=== PATIENT | male | born 1965 | race Caucasian/White ===

== ENCOUNTER 2019-08-15 14:00 | Emergency (ER) | payer OTHER, SELFPAY ==
[2019-08-15 14:03] VITALS: BP 150/120; PULSE 76; RESP 26; TEMP 36.1; O2SAT 100
--- NOTE | 2019-08-15 14:17 | W.ED.GENAD ---
Discharge Plan Disposition Patient Disposition: HOME Condition: Improving Discharge Details Chief Complaint: FlankPain Clinical Impression: Renal colic on left side Primary Care Provider: None,None ED Provider: Chad Hughes Home Meds and New Rx's Prescriptions: New tamsulosin [Flomax] 0.4 mg capsule 0.4 mg PO DAILY Qty: 30 RF: 0 Discharge Instructions Instructions: Renal Colic (ED) Additional Instructions: Please take ibuprofen over the counter. Take 600mg by mouth every 6 hours as needed for pain. Please take acetaminophen (tylenol) - 650mg every 6 hours by mouth as needed for pain. Please take Flomax as prescribed until stone passes. Please follow-up with urology. Call for an appointment. Your blood pressure today was elevated. Suspect this is secondary to your pain. Be sure to follow-up with your primary care physician for repeat blood pressure testing. Return to the ER for any worsening or new concerning symptoms. Stand Alone Forms: Work Release Referrals: Benjamin Glover MD [ [facility] STAFF PHYSICIAN] - Discharge Data Discharge Date/Time-TO BE ENTERED AT DEPARTURE: 08/15/19 16:25 Medical Decision Making 1420??53-year-old male with history of renal stones in the past, presents with left flank pain migrating down to left groin since this morning, feels exactly like prior severe kidney stone passing. Patient states he has 2 to 3 stones per year for years. Concern for renal colic. Plan to give Toradol 30 mg IV and reassess. --Zofran 4 mg IV given for nausea. Patient was also given a dose of p.o. Tylenol. --Patient reassessed and feels much better. Tolerating p.o. I provided strict instructions the patient to return immediately for any worsening symptoms and that he will need additional diagnostic should symptoms persist more than a couple days. He was provided referral to urology. Usual and customary discharge instructions otherwise provided. HPI General Mode of arrival: ambulatory. Date/Time Provider Initiated Documentation: 08/15/19 14:05. Limitations to Documentation: no limitations. Information obtained by: patient. HPI Narrative: 53-year-old male with history of kidney stones in the past, presents with chief complaint of left flank pain. Pain is severe. Pain started this morning around 7 AM initially in his left back and flank and have since migrated to his left lower flank and groin. Pain feels exactly like prior renal stones. Pain is severe. No modifiers. No associated hematuria. No associated dysuria. No fever. Related Data Home Medications Medication Instructions Recorded Confirmed tamsulosin [Flomax] 0.4 mg PO DAILY #30 cap 08/15/19 Previous Rx's Medication Instructions Recorded tamsulosin [Flomax] 0.4 mg PO DAILY #30 cap 08/15/19 Allergies Allergy/AdvReac Type Severity Reaction Status Date / Time morphine Allergy Intermediate Agitation Unverified 08/15/19 14:09 General Stated Complaint: FlankPain KIMBERLY: 3 Review of Systems All systems reviewed & are unremarkable except as noted in HPI and below Constitutional Constitutional: Denies fever(s) Genitourinary Genitourinary: Denies dysuria [facility] Medical History (Updated 08/15/19 @ 14:19 by Chad Hughes MD) Renal stones (Chronic) Social History Smoking/Tobacco Use Status: Current every day Tobacco Type: smokeless tobacco Alcohol Intake: current Alcohol Intake frequency: holidays/special occasions only Drug use: Never Do you feel safe at home: Yes Do you feel safe in your relationship?: Yes Exam Const General: cooperative and no acute distress HENMT Head: normocephalic and atraumatic Mouth: moist mucous membranes Eyes Conjunctivae: normal conjunctivae Sclera: normal sclerae Neck Neck: trachea midline and supple Resp Auscultation: clear to auscultation bilaterally, no rales, no rhonchi and no wheezes Cardio Jugular venous pressure: no JVD Rate: regular rate and not tachycardic Rhythm: regular rhythm GI Palpation: soft, not firm, no guarding, no masses, not rigid and nontender Skin General skin exam: no rashes or lesions noted Neuro General: alert, awake, oriented x3 and tone normal Extrem General: no edema Psych Appearance: grossly normal Mental Status: mental status grossly normal Course Vital Signs Vital signs: Vital Signs Temperature 36.1 C L 08/15/19 14:03 Pulse 76 08/15/19 14:03 Respiratory Rate 26 H 08/15/19 14:03 Blood Pressure 150/120 H 08/15/19 14:03 Pulse Oximetry 100 08/15/19 14:03 Temperature 36.1 C L 08/15/19 14:03 Temperature Source Skin 08/15/19 14:03 Pulse 76 08/15/19 14:03 Respiratory Rate 26 H 08/15/19 14:03 Respiratory Effort 08/15/19 14:06 Blood Pressure 150/120 H 08/15/19 14:03 Blood Pressure Position Sitting 08/15/19 14:03 Pulse Oximetry 100 08/15/19 14:03 Oxygen Delivery Method Room Air 08/15/19 14:03 Oxygen Flow Rate 0 08/15/19 14:03 Pain Level 10 08/15/19 14:03
[2019-08-15] MEDS: Ketorolac 30 MG/ML VIAL (14:19)
[2019-08-15 14:55] LABS: Bilirubin Negative (Negative); Blood Moderate (Negative); Clarity Clear (Clear); Glucose Negative (Negative); Ketones Negative (Negative); Leukocyte Esterase Negative (Negative); Nitrite Negative (Negative); Specific Gravity >= 1.030 (1.005-1.025)
[2019-08-15 15:12] LABS: Bacteria Few HPF (Negative); C & S Indicated? No; Crystals Negative HPF (Negative); Epithelial Cells Few HPF (Negative); Mucus Negative (Negative); RBC >50 HPF (0-2); WBC 0-2 HPF (0-5)
[2019-08-15] MEDS: Acetaminophen 325 MG TAB 650 MG PO (15:52)
[2019-08-15] MEDS: Ondansetron 4 MG/2 ML VIAL IVP (15:53)
[2019-08-15 16:25] VITALS: BP 168/90; PULSE 56; RESP 16; O2SAT 96
== END 2019-08-15 16:25 | disposition home or self-care (01) ==
PROVIDERS: Emergency Provider Student in an Organized Health Care Education/Training Program
DX: N23 Unspecified renal colic (principal); R10.32 Left lower quadrant pain; Z87.442 Personal history of urinary calculi
CPT/HCPCS: 96374; 96375; 99284; 81003; 81015; 99283; J1885; J2405

== ENCOUNTER 2022-01-23 23:30 | Emergency (ER) | payer OTHER, SELFPAY ==
[2022-01-23] VITALS (8 sets, daily range): BP systolic 141–209; BP diastolic 106–120; PULSE 108–120; RESP 12–23; TEMP 36.4; O2SAT 94–97
--- NOTE | 2022-01-23 23:30 | RT.EKG_ITS ---
APPROVED REPORT Exam: Resting ECG Reason for Exam: chest pain Patient Location: E HR:111 bpm ECG Measurements Heart Rate 111 AXIS MA 142 P 80 QRSd 109 QRS -37 QT 363 T 96 QTc 496 Conclusion Sinus tachycardia...rate> 99 Ventricular premature complex...V complex w/ short R-R interval Left ventricular hypertrophy...multiple LVH criteria Nonspecific T abnormalities, lateral leads...T <-0.10mV, I aVL V5 V6
--- NOTE | 2022-01-23 23:45 | DI.RAD_ITS ---
Exam(s) XR PORTABLE CHEST AP EXAM: XR PORTABLE CHEST AP CLINICAL HISTORY: chest pain. TECHNIQUE: 2D digital imaging was performed. COMPARISON: No exams were available for comparison FINDINGS: Single AP portable view. Heart size is upper normal. The mediastinum is not widened. Lungs are clear. No infiltrates nor obvious pleural effusions. IMPRESSION: No acute pulmonary findings on this single AP portable view of the chest. DATA REPOSITORY: RADIATION DOSE DELIVERED: All CT scans at this facility use at least one of these dose optimization techniques: automated exposure control; mA and/or kV adjustment per patient size (includes targeted e xams where dose is matched to clinical indication); or iterative reconstruction.
--- NOTE | 2022-01-23 23:49 | ED.GENADUL_ITS ---
Discharge Plan Disposition Patient Disposition: HOSPITAL, NON-SPECIFIC Condition: Stable Discharge Details Clinical Impression: Non-ST elevation NM (NSTEMI) Primary Care Provider: None,None ED Provider: Bereket Delaney Home Meds and New Rx's Prescriptions: No Action tamsulosin [Flomax] 0.4 mg capsule 0.4 mg PO DAILY Qty: 30 0RF Rx Instructions: Take until stone passage and then stop. Discharge Data Discharge Date/Time-TO BE ENTERED AT DEPARTURE: 01/24/22 04:54 Medical Decision Making 56 yo male who denies chronic medical problems though hasn't seen a provider regularly in many years per patient, comes in with chest pain starting 20minutes ago that woke him up from sleep. He denies any pain similar to this in the past. He states he went to bed feeling well without symptoms. He denies smoking history, drug use or alcohol use. He states the pain is a sharp anterior chest pain and gets pain in his jaw and left arm. He denies back pain, abdominal pain, n/v. He appears uncomfortable on exam. He has no leg swelling or calf tenderness, no jvd, soft nontender abodmen. He is noted to be hypertensive and tachycardic on exam. He has no murmurs, clear lung sounds. Concern for possible acs, will obtain troponin, ekg shows sinus tach with no stemi, does have lvh and I suspect he has chronic untreated hypertension. He has no hypoxia and no evidence of dvt so feel PE is unlikely though he is tachycardic. If he remains tachycardic pain free will consider cta of the chest. No tearing back pain and normal vascular exam so unlikely dissection. pt had resolution of chest pain with 3 nitro, bp now 140/90 and he feels better. Labs unremarkable, will obtain delta troponin. Xray negative on my read awaiting vrad read. He is still tachycardia despite being pain free so will order cta of the chest to evaluate for PE pt stable, HR now 80 and bp 142/85 and denies any pain, cta negative for pe does have mild cardiomegaly which I suspect is from years of uncontrolled hypertension. Awaiting delta troponin and ecg pt still denying chest pain, does state he has some tingling in his left hand. BP now 138/67 and HR 81. His second troponin came back at 1018. Heparin ordered, will try and transfer to tertiary care center [facility] not accepting transfers and not placing patients on transfer list. [facility] same as [facility] Pt remains hemodynamically stable at this time will reach out to [facility] as [facility], will reach out to [facility] Spoke with Dr. Nick from cardiology at [facility], he recommended nitropaste, 300mg plavix, 25mg metoprolol po and he has accepted in transfer. Pt updated and is in agreement with plan Differential Diagnosis Differential Diagnosis: NM, dissection, pe Imaging Data Radiologic Study: Attestation: I personally reviewed and interpreted this imaging study as follows: Imaging: X-Ray My impression: no acute findings Radiologic Study #2: Attestation: I personally reviewed and interpreted this imaging study as follows: Imaging: CT Scan Radiologist's impression: IMPRESSION: No pulmonary emboli observed mild cardiomegaly Lab Data Lab results reviewed: Yes I reviewed the patient's lab results. ECG Data Attestation: I personally reviewed and interpreted this ECG (s) as follows: Prior ECG tracings: not available for review Interpretation: sinus tachycardia, rate of 111, lvh, no stemi 2nd ekg sinus rhythm, rate of 89, pr 141, no stemi HPI General Mode of arrival: ambulatory . Date/Time Provider Initiated Documentation: 01/23/22 23:36 . Limitations to Documentation: no limitations . Information obtained by: patient . History of Present Illness 56 year old M presents to the emergency department with the chief complaint of chest pain, described as moderate, and is localized to the chest. Patient extremity. Patient started experiencing this minute(s) (20) and it has been constant. No relieving factors improve symptom(s), No exacerbating factors reported . Patient notes shortness of breath. Related Data Home Medications Medication Instructions Recorded Confirmed tamsulosin 0.4 mg capsule (Flomax) 0.4 mg PO DAILY #30 caps 08/15/19 Previous Rx's Medication Instructions Recorded tamsulosin 0.4 mg capsule (Flomax) 0.4 mg PO DAILY #30 caps 08/15/19 Allergies Allergy/AdvReac Type Severity Reaction Status Date / Time morphine Allergy Intermediate Agitation Unverified 01/24/22 00:07 General Stated Complaint: Chest Pain KIMBERLY: 3 Review of Systems All systems reviewed & are unremarkable except as noted in HPI and below Constitutional Constitutional: Denies chills, Denies fever(s) and Denies weakness Respiratory Respiratory: Denies cough Gastrointestinal Gastrointestinal: Denies abdominal pain, Denies nausea and Denies vomiting Neurologic Neurologic: Denies weakness PFSH All Active Problems (Updated 01/24/22 @ 04:00 by Bereket Delaney MD) Non-ST elevation NM (NSTEMI) (Acute) Renal stones (Chronic) Social History Smoking/Tobacco Use Status: Former Tobacco Use Smoking risk assessment performed?: Yes Alcohol Intake: current Alcohol Intake frequency: holidays/special occasions only Drug use: Never Substance use type: does not use Do you feel safe at home: Yes Do you feel safe in your relationship?: Yes Exam Const General: other (appears in pain) Orientation: alert HENMT Head: normal to inspection Ears: external ears normal General nose exam: external nose normal Mouth: moist mucous membranes Eyes General: appearance normal, both eyes and all related structures Neck Neck: normal visual inspection Resp Effort & Inspection: normal respiratory effort and able to speak in complete sentences Cardio Rate: tachycardic Skin General skin exam: no rashes or lesions noted Neuro General: patient alert and patient oriented x3 Extrem General: normal to inspection Psych Mental Status: mental status grossly normal Course Vital Signs Vital signs: Vital Signs Temperature 36.4 C L 01/23/22 23:33 Pulse 120 H 01/23/22 23:33 Respiratory Rate 20 01/23/22 23:33 Blood Pressure 209/120 H 01/23/22 23:33 Pulse Oximetry 97 01/23/22 23:33 Temperature 36.4 C L 01/23/22 23:33 Temperature Source Temporal Artery Scan 01/23/22 23:33 Pulse 120 H 01/23/22 23:33 Respiratory Rate 20 01/23/22 23:33 Blood Pressure 209/120 H 01/23/22 23:33 Blood Pressure Position Sitting 01/23/22 23:33 Pulse Oximetry 97 01/23/22 23:33 Oxygen Delivery Method Room Air 01/23/22 23:33 Oxygen Flow Rate 0 01/23/22 23:33 Critical Care Time Critical Care Time Critical Care Time: Yes Total Critical Care Time: 60 (minutes) Attestation: time spent on lab review, frequent reassessments, hemodynamic monitoring in a pa tient with an nstemi and potential to deteriorate at any time and requiring iv heparin
[2022-01-23 23:50] LABS: Abs Immature Grans 0.03 10^3/uL (0.0-0.06); Absolute Basophil Count 0.09 10^3/uL (0.0-0.2); Absolute Eosinophil Count 0.36 10^3/uL (0.0-0.7); Absolute Lymphocyte Count 4.29 10^3/uL (1.2-3.4); Absolute Monocyte Count 0.93 10^3/uL (0.1-0.8); Absolute Neutrophil Count 4.02 10^3/uL (1.2-6.7); Basophils % 0.9; Eosinophils % 3.7; HCT 51.5 % (40.0-50.0); HGB 17.9 g/dL (13.5-17.5); Immature Grans % 0.3; Lymphocytes % 44.1; MCH 32.3 pg (27.0-33.0); MCHC 34.8 % (32.0-36.0); MCV 93 fL (80-95); MPV 10.2 fL (8.0-11.0); Monocytes % 9.6; Neutrophils % 41.4; Platelet Count 184 10^3/uL (130-400); RBC 5.55 10^6/uL (4.36-5.78); RDW 12.9 % (11.8-14.1); RDW-SD 43.9 fL; WBC 9.72 10^3/uL (4.4-10.8)
[2022-01-23] MEDS: nitroGLYcerin 0.4 MG TAB SL (23:54)
[2022-01-23] MEDS: Aspirin 81 MG CHEW 324 MG CH (23:54)
[2022-01-24] VITALS (53 sets, daily range): BP systolic 133–202; BP diastolic 67–118; PULSE 68–117; RESP 10–21; O2SAT 89–99
[2022-01-24] MEDS: nitroGLYcerin 0.4 MG TAB SL ×2 (00:04→00:10)
[2022-01-24 00:08] LABS: ALT 164 U/L (16-63); AST 105 U/L (15-37); Albumin 3.7 g/dL (3.4-5.0); Alkaline Phosphatase 71 U/L (46-116); Anion Gap 4.4 mmol/L (3-11); BUN 11 mg/dL (7-18); Bilirubin, Total 0.4 mg/dL (0.2-1.0); CO2 25.6 mmol/L (21.0-32.0); CREATININE 1.1 mg/dL (0.70-1.30); Calcium 8.5 mg/dL (8.5-10.1); Chloride 102 mmol/L (98-107); Glucose 177 mg/dL (74-106); Magnesium 1.9 mg/dL (1.8-2.4); Potassium 3.4 mmol/L (3.5-5.1); Sodium 132 mmol/L (136-145); Total Protein 7.4 g/dL (6.4-8.2); Troponin I < 50 ng/L (<or=60)
--- NOTE | 2022-01-24 00:15 | DI.CT_ITS ---
Exam(s) CT CHEST PE CTA EXAM: CT CHEST PE CTA CLINICAL HISTORY: chest pain, tachycardia. TECHNIQUE: Imaging Protocol: CT angiography of the chest was performed using pulmonary embolus marge col. Multi planar reconstructions were performed. CONTRAST MATERIAL: Intravenous: Isovue 370 contrast volume: 100 cc COMPARISON: CT RENAL COLIC WO CONTRAST from 01/23/2015 FINDINGS: CHEST: PULMONARY ARTERIES: There are no intraluminal filling defects to suggest acute pulmonary emboli. LUNGS: Mild increased markings both lung bases but no confluent infiltrates.. There are no pleural e ffusions. MEDIASTINUM: There is no hilar nor mediastinal adenopathy. Visualized thyroid unremarkable. CARDIAC: There is mild cardiomegaly.Caliber of the thoracic aorta is within normal limits. No evidenc e of dissection. No pericardial effusion. There is no significant shift of the interventricular sep cherise. PARTIALLY VISUALIZED UPPERMOST ABDOMEN: Hepatic steatosis noted. OSSEOUS: No significant osseous lesions.. IMPRESSION: 1. No evidence of acute pulmonary emboli. No evidence of pulmonary infarction.No pleural effusions. 2. Mild increased markings in both lung bases but no confluent infiltrates. No intrathoracic adenopa thy. 3. Mild cardiomegaly. No pericardial effusion. No shift of the interventricular septum. RADIATION DOSE DELIVERED: 486.57mGy.cm Total DLP DATA REPOSITORY: All CT scans at this facility are submitted to the National Radiology Data Registry (NRDR) Dose Index Registry (DIR) with the [employer] (ACR). RADIATION OPTIMIZATION: All CT scans at this facility use at least one of these dose optimization te chniques: automated exposure control; mA and/or kV adjustment per patient size (includes targeted exa ms where dose is matched to clinical indication); or iterative reconstruction.
[2022-01-24] MEDS: Normal Saline 250 ML 500 ML IV (00:33)
--- NOTE | 2022-01-24 00:55 | DI.VRAD_ITS ---
PROCEDURE INFORMATION: Exam: XR Chest Exam date and time: 01/23/2022 23:44 Age: 56 years old Clinical indication: Chest wall pain; Additional info: Chest pain TECHNIQUE: Imaging protocol: XR of the chest. Views: 1 view. COMPARISON: CT RENAL COLIC WO CONTRAST 01/23/2015 18:13 FINDINGS: Lungs: Low lung volumes. No airspace consolidation. Pleural spaces: No pleural effusion. No pneumothorax. Heart/Mediastinum: The cardiac silhouette is upper limits of normal. Bones/joints: No acute fracture. IMPRESSION: Negative portable chest. Dictated and Authenticated by: Meaghan Staton MD. Ordering:NINOSKA Cuba MD
--- NOTE | 2022-01-24 02:15 | RT.EKG_ITS ---
APPROVED REPORT Exam: Resting ECG Reason for Exam: chest pain Patient Location: E HR:89 bpm ECG Measurements Heart Rate 89 AXIS VA 141 P 56 QRSd 101 QRS -40 QT 391 T 111 QTc 476 Conclusion Sinus rhythm...normal P axis, V-rate 60- 99 Left anterior fascicular block...axis(240,-40), init forces inf LVH with secondary repolarization abnormality...multi-LVH criteria, abnrm ST-T
--- NOTE | 2022-01-24 02:18 | DI.VRAD_ITS ---
PROCEDURE INFORMATION: Exam: CTA Chest With Contrast Exam date and time: 01/24/2022 12:42 AM Age: 56 years old Clinical indication: Pain; Left-sided; Additional info: Chest pain TECHNIQUE: Imaging protocol: Computed tomographic angiography of the chest with contrast. 3D rendering (Not supervised by radiologist): MIP and/or 3D reconstructed images were created by the technologist. Radiation optimization: All CT scans at this facility use at least one of these dose optimization techniques: automated exposure control; mA and/or kV adjustment per patient size (includes targeted exams where dose is matched to clinical indication); or iterative reconstruction. Contrast material: ISOVUE 370; Contrast volume: 100 ml; Contrast route: INTRAVENOUS (IV); COMPARISON: XR PORTABLE CHEST AP 01/23/2022 11:44 PM FINDINGS: Pulmonary arteries: No pulmonary emboli. Aorta: No aortic aneurysm. No aortic dissection. Lungs: Minimal subsegmental atelectasis No consolidation. No masses. Pleural spaces: Unremarkable. No pneumothorax. No pleural effusion. Heart: Mild cardiomegaly. No pericardial effusion. Lymph nodes: Unremarkable. No enlarged lymph nodes. Bones/joints: Unremarkable. No acute fracture. Soft tissues: Unremarkable. IMPRESSION: No pulmonary emboli observed Mild cardiomegaly Dictated and Authenticated by: Davey Dow MD. Ordering:NINOSKA Cuba MD
[2022-01-24 03:15] LABS: Troponin I 1018 ng/L (<or=60)
[2022-01-24 03:49] LABS: Source Nasal/Nares
[2022-01-24] MEDS: nitroGLYcerin 2% 1 INCH/1 GM PKT TP (03:56)
[2022-01-24 03:57] LABS: PTT Activated 24.7 sec (21.0-27.5); Prothrombin Time 10.4 sec (9.3-11.0)
[2022-01-24] MEDS: Clopidogrel 300 MG TAB PO (03:58)
[2022-01-24] MEDS: Metoprolol 25 MG TAB PO (03:58)
[2022-01-24 04:38] LABS: COVID-19 PCR Negative (Negative)
--- NOTE | 2022-01-24 07:48 | NUR.NOTE ---
wrong number listed under contact information.
== END 2022-01-24 04:54 | disposition short-term general hospital (02) ==
PROVIDERS: Emergency Provider Emergency Medicine
DX: I21.4 Non-ST elevation (NSTEMI) myocardial infarction (principal); I10 Essential (primary) hypertension; R00.0 Tachycardia, unspecified
CPT/HCPCS: 36415; 71275; 80053; 87635; 93005; 96361; 96365; 96376; 99291; 71045; 83735; 84484; 85025; 85610; 85730; 93010

== ENCOUNTER 2022-02-16 02:20 | Outpatient (CLI) | payer OTHER, SELFPAY ==
--- OUTSIDE RECORDS SUMMARY | 2022-02-16 02:24 | XMS_ITS | Continuity of Care Document ---
:1965 Author Organization [facility] Address [address] [place] [address]- Care Team Providers Name Role Phone Not on Staff, PCP Primary Care Physician Unavailable Encounter [facility] Date(s): 01/24/22 - 01/27/22 [facility] [address] [place] [id number] Discharge Disposition: A-D/C Home Attending Physician: Taina Begum MD Admitting Physician: Lev Mckenna MD Referring Physician: Lev Mckenna MD Allergies, Adverse Reactions, Alerts Substance Reaction Severity Status morphine1 Moderate Active 1Agitation Medications - -, See Instructions, # 1 each, Refills 0, Tot. Refills 0, Maintenance, PLEASE CHECK HEPATIC FUNCTIONPANEL IN ONE WEEK., 01/27/22 10:09:00 EDT, Supply Start Date: 01/27/22 Status: OrderedamLODIPine 5 mg oral tablet 5 mg, 1, tablet, By Mouth, Daily, # 30 tablet, Refills 3, Tot. Refills 3, Maintenance, 01/26/22 9:59:00 EDT, Route to Pharmacy Electronically, [facility], Partial fill upon patient request if the prescription is for a schedule II opioid... Start Date: 01/26/22 Stop Date: 05/26/22 Status: OrderedamLODIPine 5 mg oral tablet 5 mg, Tablet, By Mouth, 01/27/22 9:00:00 EDT Start Date: 01/27/22 Stop Date: 01/27/22 Status: Completedaspirin 81 mg oral delayed release tablet 81 mg, By Mouth, Daily, # 30 tablet, Refills 11, Tot. Refills 11, Maintenance, 01/26/22 9:59:00 EDT,Route to Pharmacy Electronically, [facility], Partial fill upon patient request if theprescription is for a schedule II opioid drug., 1... Start Date: 01/26/22 Stop Date: 01/21/23 Status: Orderedisosorbide mononitrate 30 mg oral tablet, extended release 1 tablet = 30 mg, By Mouth, Daily, # 30 tablet, 3 Refills, Maintenance, 01/27/22 10:02:00 EDT, ER Tablet, [facility], Partial fill upon patient request if the prescription is for a schedule II opioid drug., 178, cm, 01/27/22 3:34:00 EDT,... Start Date: 01/27/22 Stop Date: 05/27/22 Status: Orderedmetoprolol 25 mg oral tablet, extended release 25 mg, 1, tablet, By Mouth, Daily, # 30 tablet, Refills 3, Tot. Refills 3, Maintenance, 01/26/22 10:01:00 EDT, Route to Pharmacy Electronically, [facility], Partial fill upon patient request if the prescription is for a schedule II opioi... Start Date: 01/26/22 Stop Date: 05/26/22 Status: Orderedmetoprolol 25 mg oral tablet, extended release 25 mg, XL Tablet, By Mouth, 01/27/22 9:00:00 EDT Start Date: 01/27/22 Stop Date: 01/27/22 Status: Completedticagrelor 90 mg oral tablet 1 tablet = 90 mg, By Mouth, 2 times a day, # 60 tablet, 11 Refills, Maintenance, 01/26/22 10:00:00 EDT, Tablet, [facility], Partial fill upon patient request if the prescription is for a schedule II opioid drug., 178, cm, 01/25/22 16:48:... Start Date: 01/26/22 Stop Date: 01/21/23 Status: OrderedTylenol 325 mg oral tablet 650 mg, Tablet, By Mouth, Every 6 hours, PRN for Headache, Routine, 01/24/22 11:27:00 EDT Start Date: 01/24/22 Stop Date: 01/28/22 Status: Discontinued Problem List Condition Effective Dates Status Health Status Informant Obese class II(Confirmed) Active Vital Signs Most recent to oldest 1 2 3 [Reference Range]: Height 178 cm 178 cm 178 cm (01/27/22 12:30 AM) (01/25/22 2:30 PM) (01/25/22 8: 03 AM) Weight 118.9 kg 116.6 kg 114.0 kg (01/26/22 5:29 PM) (01/26/22 4:00 AM) (01/25/22 7:5 9 AM) Oxygen Saturation [94-100 %] 100 % 100 % 98 % (01/27/22 7:00 AM) (01/27/22 5:00 AM) (01/27/22 12: 30 AM) Pulse Rate [55-90 bpm] 79 bpm 79 bpm 80 bpm (01/27/22 8:35 AM) (01/27/22 7:00 AM) (01/27/22 5:0 0 AM) Body Mass Index [18.5-24.99] 35.98 36.58 36. 52 *>HHI* *>HHI* *>HHI* (01/25/22 1:46 AM) (01/24/22 9:00 AM) (01/24/22 8:1 3 AM) Blood Pressure [90-138/55-84 154/77 mm Hg 154/77 mm Hg 154 /77 mm Hg mm Hg] *H* *H* *H* (01/27/22 8:35 AM) (01/27/22 8:35 AM) (01/27/22 7:0 0 AM) Respiratory Rate [16-30 22 br/min 25 br/min 19 br/mi n br/min] (01/27/22 7:00 AM) (01/27/22 5:00 AM) (01/27/22 3:3 8 AM) Temperature [96.8-100.4 DegF] 98.1 DegF 98.3 DegF 98 .2 DegF (01/27/22 7:00 AM) (01/27/22 5:00 AM) (01/27/22 12: 30 AM) Liters per Minute 2 L/min 2 L/min 2 L/min (01/26/22 3:00 AM) (01/26/22 2:00 AM) (01/26/22 1:0 0 AM) Mode of Delivery (Oxygen) Room air Room air Room a ir (01/27/22 7:00 AM) (01/27/22 5:00 AM) (01/27/22 12: 30 AM) Blood pressure sites Arm, left Arm, left Arm, right (01/27/22 7:00 AM) (01/27/22 5:00 AM) (01/27/22 12: 30 AM) Temperature Route Oral Oral Oral (01/27/22 7:00 AM) (01/27/22 5:00 AM) (01/27/22 12: 30 AM) Dry Weight 115.9 kg 115.7 kg (01/24/22 9:00 AM) (01/24/22 8:13 AM) Weight Obtained Via bedscale Bed scale Bed scale (01/26/22 5:29 PM) (01/26/22 4:00 AM) (01/25/22 1:4 6 AM) Dry Weight Obtained Via Standing scale (01/24/22 8:13 AM)
[2022-02-16 11:33] LABS: ALT 127 U/L (16-63); AST 56 U/L (15-37); Albumin 4.3 g/dL (3.4-5.0); Alkaline Phosphatase 65 U/L (46-116); Anion Gap 12.2 mmol/L (3-11); BUN 18 mg/dL (7-18); Bilirubin, Total 0.6 mg/dL (0.2-1.0); CO2 20.8 mmol/L (21.0-32.0); CREATININE 1.3 mg/dL (0.70-1.30); Calcium 9.2 mg/dL (8.5-10.1); Chloride 106 mmol/L (98-107); Glucose 112 mg/dL (74-106); Potassium 4.3 mmol/L (3.5-5.1); Sodium 139 mmol/L (136-145); Total Protein 8.2 g/dL (6.4-8.2)
== END 2022-02-16 02:21 | disposition home or self-care (01) ==
LOC: LBO 02:20
PROVIDERS: PCP Family Medicine; Visit Provider Family Medicine
DX: R74.01 Elevation of levels of liver transaminase levels (principal); Z95.5 Presence of coronary angioplasty implant and graft
CPT/HCPCS: 36415; 80053

== ENCOUNTER 2022-03-30 08:51 | Outpatient (CLI) | payer OTHER, SELFPAY ==
[2022-04-02 11:22] LABS: HBs Antibody, Qual Negative (See Note); HBs Antibody, Quant <3.1 mIU/mL (See Note); Hepatitis B Core Antibody Negative (Negative); Hepatitis B surface Ag Negative (Negative); Hepatitis C Ab w Rflx HCV PCR Negative (Negative)
== END 2022-03-30 08:52 | disposition home or self-care (01) ==
LOC: LBO 08:51
PROVIDERS: PCP Family Medicine; Visit Provider Family Medicine
DX: R74.01 Elevation of levels of liver transaminase levels (principal)
CPT/HCPCS: 36415; 86704; 86706; 86803; 87340

== ENCOUNTER 2022-04-11 08:00 | Outpatient (RCR) | payer OTHER, SELFPAY | END 2022-04-11 23:59 | disposition home or self-care (01) | LOC: CR 08:00 | PROVIDERS: PCP Family Medicine; Visit Provider Internal Medicine Cardiovascular Disease | DX: Z51.89 Encounter for other specified aftercare (principal); I25.2 Old myocardial infarction; Z95.5 Presence of coronary angioplasty implant and graft | CPT/HCPCS: S9472 ==

== ENCOUNTER 2022-04-27 10:29 | Outpatient (RCR) | payer OTHER, SELFPAY | END 2022-05-11 23:59 | disposition home or self-care (01) | LOC: CR 10:29 | PROVIDERS: PCP Family Medicine; Visit Provider Internal Medicine Cardiovascular Disease | DX: Z51.89 Encounter for other specified aftercare (principal); I25.2 Old myocardial infarction; Z95.5 Presence of coronary angioplasty implant and graft | CPT/HCPCS: S9472 ==

== ENCOUNTER 2022-05-15 09:57 | Emergency (ER) | payer OTHER, SELFPAY ==
[2022-05-15] VITALS (41 sets, daily range): BP systolic 96–165; BP diastolic 64–95; PULSE 55–113; RESP 12–116; TEMP 36.5–37.1; O2SAT 94–99
--- NOTE | 2022-05-15 10:00 | RT.EKG_ITS ---
APPROVED REPORT Exam: Resting ECG Reason for Exam: Dizziness Patient Location: E HR:65 bpm ECG Measurements Heart Rate 65 AXIS AL 139 P 74 QRSd 112 QRS -39 QT 446 T -9 QTc 465 Conclusion Sinus rhythm...normal P axis, V-rate 60- 99
--- NOTE | 2022-05-15 10:27 | ED.GENADUL_ITS ---
Discharge Plan Disposition Patient Disposition: HOME Condition: Improving Discharge Details Clinical Impression: Benign paroxysmal positional vertigo Primary Care Provider: Pat Corbett ED Provider: Jaskaran Marroquin Home Meds and New Rx's Prescriptions: New meclizine 25 mg tablet 25 mg PO TID PRN (Reason: dizziness) Qty: 20 0RF ondansetron 4 mg tablet,disintegrating 4 mg PO Q8H PRNQty: 20 0RF Continued clopidogrel 75 mg tablet 75 mg PO DAILY Qty: 90 3RF aspirin 81 mg tablet,delayed release (DR/EC) 81 mg PO DAILY atorvastatin 80 mg tablet 80 mg PO QHS Qty: 90 3RF metoprolol succinate 50 mg tablet extended release 24 hr 50 mg PO DAILY Qty: 30 2RF Discharge Instructions Instructions: Benign Paroxysmal Positional Vertigo (ED) Additional Instructions: Please stay well-hydrated and get plenty of rest tomorrow. Take medication as needed and avoid any rapid movements of your head or going from sitting to lying or vice versa. If you have any new or significant worsening of symptoms return immediately to the emergency department for reassessment Stand Alone Forms: Physical Therapy Referral, Work Release Referrals: Pat Corbett MD [Primary Care Provider] - 1 week (Reassessment of vertigo) Discharge Data Discharge Date/Time-TO BE ENTERED AT DEPARTURE: 05/15/22 19:44 Medical Decision Making <BRANDI Brunner - Last Filed: 05/15/22 16:02> This is a 56-year-old gentleman, past medical history of hypertension, [place] with stent placement back in January of this year presenting to the ER reporting he went to bed last night feeling normal, awoke this morning around 4 AM like he typically would, went to the restroom and upon returning to bed he felt dizzy like the room was spinning. He states this subsequently caused nausea and vomiting and after multiple episodes of vomiting he states that he developed a mild dull aching posterior headache. He denies history of the symptoms previously. He reports that overall his symptoms are improving when compared to his initial presentation around 4 AM but they have not resolved. Symptoms are made worse with movement. Clinically he appears well, nontoxic, neurologically intact. We will initiate cardiac work-up, obtain imaging CT and chest imaging of his head, and provide IV fluid, Zofran and oral meclizine. Initial laboratory values are unremarkable. Awaiting imaging. Upon reevaluation patient reports that his nausea and headache have resolved completely and his dizziness is much improved but has not resolved completely. Clinically he appears well, nontoxic, resting comfortably, remains neurologically intact. CT imaging unremarkable. Upon reevaluation patient reports nausea has resolved completely and he no longer has a headache. He reports that he was able to ambulate to the restroom fairly steadily but with movement of his head especially in the downward fashion he continues to have some dizziness as though the room is spinning. Plan is to provide 5 IV Valium and I will attempt to obtain an MRI. I was able to contact MRI and they state that they are able to perform an MRI today likely around 1:15 PM. Patient agreeable to this plan Patient has not received his IV Valium yet. He reports that just lying there he has had 3 episodes of worsening vertigo-like symptoms. I have once again requested that the arm and provide the IV Valium while we await the MRI. MRI has been pushed now to about 2:15 PM Upon reevaluation at 1410, patient is resting comfortably, wakes easily to verbal stimuli. Reports that his symptoms have improved greatly. Patient returns from MRI, patient reports that symptoms have returned. Does not feel as though he can ambulate safely. MRI reveals an 8 x 6 mm acute nonhemorrhagic lacunar infarct in the immediate right periventriclar white matter. Discussed findings with patient. He remains symptomatic and is comfortable with admission or transfer Patient went to bed last night asymptomatic, awoke around 4 AM this morning and noticed his symptoms, is on aspirin and Plavix, likely not a candidate for tPA. We will discuss case with neurology. Call placed to Dr. Nuno. She will personally review the MRI and discussed the case with our radiologist. In the meantime she requests that we perform a HINTS exam. I was pulled away from this case because of a critical patient. I signed the case out to my colleague EMELYN Marroquin with the HINTS exam pending, follow-up with neurology, Dr. Nuno, and final disposition. This documentation was generated using [employer] system, please disregard any oddities of phrase or misspellings. Medical Records Medical records reviewed: Yes I reviewed the patient's medical records. Imaging Data Radiologic Study: Attestation: I personally reviewed and interpreted this imaging study as follows: Imaging: CT Scan Radiologist's impression: Exam(s) CT HEAD WO EXAM: CT HEAD WO CLINICAL HISTORY: Dizziness, headache. TECHNIQUE: Imaging Protocol: Axial computed tomography images with coronal and sagittal reformatted images were created and reviewed COMPARISON: No exams were available for comparison FINDINGS: There are no skull fractures nor fluid in the visualized paranasal sinuses. There is no evidence of intracranial hemorrhage, mass effect, or shift of midline structures. There are no extra-axial fluid collections. The ventricles are not enlarged or shifted and there is no blood within the ventricular system nor within the basal cisterns. IMPRESSION: No acute intracranial findings on this noninfused CT scan of the brain. Radiologic Study #2: Attestation: I personally reviewed and interpreted this imaging study as follows: Imaging: MRI Radiologist's impression: Exam(s) MR BRAIN WO EXAM: MR BRAIN WO CLINICAL HISTORY: dizzy,ataxia TECHNIQUE: Multiplanar multisequence MRI of the brain was performed. COMPARISON: CT CT HEAD WO from 05/15/2022 FINDINGS: CEREBRAL PARENCHYMA: There is no evidence of intracranial hemorrhage, mass effect, or shift of midline structures. There are no extra-axial fluid collections. Ventricles are not enlarged or shifted. There is no significant focal signal abnormality in the cerebellar hemispheres nor within the ren, midbrain, and thalami. However, there is a focus of signal abnormality fluid in restricted diffusion in the immediate right periventricular white matter-just above the medial right basal ganglia consistent measuring approximately 8 x 6 millimeters and consistent with nonhemorrhagic lacunar infarct. No other areas of restricted diffusion in the brain. There is no significant focal signal abnormality evident on diffusion imaging to suggest acute ischemic event. PITUITARY GLAND: No mass nor parasellar abnormality. No obvious abnormality in the cavernous sinuses. FLOW VOIDS: The expected flow void are noted. No evidence of obvious aneurysm nor obvious vascular malformation. PARANASAL SINUSES: The visualized paranasal sinuses appear unremarkable. No obvious finding ORBITS: No obvious findings. IMPRESSION: There is an 8 x 6 millimeter acute nonhemorrhagic lacunar infarct in the immediate right periventricular white matter. No other areas of infarct in the brain. Lab Data Lab results reviewed: Yes I reviewed the patient's lab results. Labs: Laboratory Tests Range/Units 05/15/22 05/15/22 05/15/22 10:48 10:48 10:48 WBC (4.4-10.8) 10^3/uL 9.92 RBC (4.36-5.78) 10^6/uL 5.20 Hgb (13.5-17.5) g/dL 16.8 Hct (40.0-50.0) % 48.7 MCV (80-95) fL 94 MCH (27.0-33.0) pg 32.3 MCHC (32.0-36.0) % 34.5 RDW (11.8-14.1) % 12.6 Plt Count (130-400) 10^3/uL 222 MPV (8.0-11.0) fL 9.6 Immature Gran % 0.4 Neutrophils % 77.1 Lymphocytes % 16.3 Monocytes % 5.5 Eosinophils % 0.2 Basophils % 0.5 Nucleated RBC % (0.0-0.3) % 0.0 Absolute Neutrophils (1.2-6.7) 10^3/uL 7.64 H Absolute Lymphocytes (1.2-3.4) 10^3/uL 1.62 Absolute Monocytes (0.1-0.8) 10^3/uL 0.55 Absolute Eosinophils (0.0-0.7) 10^3/uL 0.02 Absolute Basophils (0.0-0.2) 10^3/uL 0.05 PT (9.3-11.0) sec 10.7 INR (0.9-1.1) 1.1 APTT (21.0-27.5) sec 23.5 Sodium (136-145) mmol/L 141 Potassium (3.5-5.1) mmol/L 4.0 Chloride (98-107) mmol/L 106 Carbon Dioxide (21.0-32.0) mmol/L 27.0 Anion Gap (3-11) mmol/L 8.0 BUN (7-18) mg/dL 12 Creatinine (0.70-1.30) mg/dL 1.0 Est GFR (CKD-EPI 2020) (mL/min/1.73m2) 88.33 Glucose (74-106) mg/dL 123 H Calcium (8.5-10.1) mg/dL 8.9 Magnesium (1.8-2.4) mg/dL 1.8 Total Bilirubin (0.2-1.0) mg/dL 0.6 AST (15-37) U/L 29 ALT (16-63) U/L 55 Alkaline Phosphatase (46-116) U/L 67 Troponin I (<or=60) ng/L < 50 Total Protein (6.4-8.2) g/dL 7.5 Albumin (3.4-5.0) g/dL 3.9 TSH (0.36-3.74) uIU/mL 3.37 Urine Color (Yellow) Urine Clarity (Clear) Urine pH (5-8) Ur Specific [place] (1.005-1.025) Urine Protein (Negative) mg/dL Urine Ketones (Negative) mg/dL Urine Blood (Negative) Urine Nitrite (Negative) Urine Bilirubin (Negative) Urine Urobilinogen (Up TO 0.2) EU/dL Ur Leukocyte Esterase (Negative) Urine RBC (0-2) HPF Urine WBC (0-5) HPF Ur Epithelial Cells (Negative) HPF Urine Crystals (Negative) HPF Urine Bacteria (Negative) HPF Urine Casts (Negative) LPF Urine Mucus (Negative) Ur Culture Indicated? Urine Glucose (Negative) mg/dL COVID-19 Source Range/Units 05/15/22 05/15/22 12:30 12:30 WBC (4.4-10.8) 10^3/uL RBC (4.36-5.78) 10^6/uL Hgb (13.5-17.5) g/dL Hct (40.0-50.0) % MCV (80-95) fL MCH (27.0-33.0) pg MCHC (32.0-36.0) % RDW (11.8-14.1) % Plt Count (130-400) 10^3/uL MPV (8.0-11.0) fL Immature Gran % Neutrophils % Lymphocytes % Monocytes % Eosinophils % Basophils % Nucleated RBC % (0.0-0.3) % Absolute Neutrophils (1.2-6.7) 10^3/uL Absolute Lymphocytes (1.2-3.4) 10^3/uL Absolute Monocytes (0.1-0.8) 10^3/uL Absolute Eosinophils (0.0-0.7) 10^3/uL Absolute Basophils (0.0-0.2) 10^3/uL PT (9.3-11.0) sec INR (0.9-1.1) APTT (21.0-27.5) sec Sodium (136-145) mmol/L Potassium (3.5-5.1) mmol/L Chloride (98-107) mmol/L Carbon Dioxide (21.0-32.0) mmol/L Anion Gap (3-11) mmol/L BUN (7-18) mg/dL Creatinine (0.70-1.30) mg/dL Est GFR (CKD-EPI 2020) (mL/min/1.73m2) Glucose (74-106) mg/dL Calcium (8.5-10.1) mg/dL Magnesium (1.8-2.4) mg/dL Total Bilirubin (0.2-1.0) mg/dL AST (15-37) U/L ALT (16-63) U/L Alkaline Phosphatase (46-116) U/L Troponin I (<or=60) ng/L Total Protein (6.4-8.2) g/dL Albumin (3.4-5.0) g/dL TSH (0.36-3.74) uIU/mL Urine Color (Yellow) Yellow Urine Clarity (Clear) Clear Urine pH (5-8) 6.5 Ur Specific [place] (1.005-1.025) 1.015 Urine Protein (Negative) mg/dL Negative Urine Ketones (Negative) mg/dL Negative Urine Blood (Negative) Trace-lysed H Urine Nitrite (Negative) Negative Urine Bilirubin (Negative) Negative Urine Urobilinogen (Up TO 0.2) EU/dL 1.0 H Ur Leukocyte Esterase (Negative) Negative Urine RBC (0-2) HPF 0-2 Urine WBC (0-5) HPF Negative Ur Epithelial Cells (Negative) HPF Rare Urine Crystals (Negative) HPF Negative Urine Bacteria (Negative) HPF Negative Urine Casts (Negative) LPF Negative Urine Mucus (Negative) Negative Ur Culture Indicated? No Urine Glucose (Negative) mg/dL Negative COVID-19 Source Nasal/Nares ECG Data Attestation: I personally reviewed and interpreted this ECG (s) as follows: Interpretation: Sinus rhythm, ventricular rate of 65. Nonspecific ST-T wave abnormalities, no STEMI <Jaskaran Marroquin NP - Last Filed: 05/16/22 11:23> This is a 56-year-old gentleman, past medical history of hypertension, [place] with stent placement back in January of this year presenting to the ER reporting he went to bed last night feeling normal, awoke this morning around 4 AM like he typically would, went to the restroom and upon returning to bed he felt dizzy like the room was spinning. He states this subsequently caused nausea and vomiting and after multiple episodes of vomiting he states that he developed a mild dull aching posterior headache. He denies history of the symptoms previously. He reports that overall his symptoms are improving when compared to his initial presentation around 4 AM but they have not resolved. Symptoms are made worse with movement. Clinically he appears well, nontoxic, neurologically intact. We will initiate cardiac work-up, obtain imaging CT and chest imaging of his head, and provide IV fluid, Zofran and oral meclizine. Initial laboratory values are unremarkable. Awaiting imaging. Upon reevaluation patient reports that his nausea and headache have resolved completely and his dizziness is much improved but has not resolved completely. Clinically he appears well, nontoxic, resting comfortably, remains neurologically intact. CT imaging unremarkable. Upon reevaluation patient reports nausea has resolved completely and he no longer has a headache. He reports that he was able to ambulate to the restroom fairly steadily but with movement of his head especially in the downward fashion he continues to have some dizziness as though the room is spinning. Plan is to provide 5 IV Valium and I will attempt to obtain an MRI. I was able to contact MRI and they state that they are able to perform an MRI today likely around 1:15 PM. Patient agreeable to this plan Patient has not received his IV Valium yet. He reports that just lying there he has had 3 episodes of worsening vertigo-like symptoms. I have once again requested that the arm and provide the IV Valium while we await the MRI. MRI has been pushed now to about 2:15 PM Upon reevaluation at 1410, patient is resting comfortably, wakes easily to verbal stimuli. Reports that his symptoms have improved greatly. Patient returns from MRI, patient reports that symptoms have returned. Does not feel as though he can ambulate safely. MRI reveals an 8 x 6 mm acute nonhemorrhagic lacunar infarct in the immediate right periventriclar white matter. Discussed findings with patient. He remains symptomatic and is comfortable with admission or transfer Patient went to bed last night asymptomatic, awoke around 4 AM this morning and noticed his symptoms, is on aspirin and Plavix, likely not a candidate for tPA. We will discuss case with neurology. Call placed to Dr. Nuno. She will personally review the MRI and discussed the case with our radiologist. In the meantime she requests that we perform a HINTS exam. I was pulled away from this case because of a critical patient. I signed the case out to my colleague EMELYN Marroquin with the HINTS exam pending, follow-up with neurology, Dr. Nuno, and final disposition. This documentation was generated using [employer] system, please disregard any oddities of phrase or misspellings. 1600-assumed patient care from BRANDI Cullen. Please see above for initial presentation, HPI, physical exam and plan of care. I did consult with neurologist Dr. Nuno. She stated that given the area of finding on the MRI she does not feel this is a acute stroke. She recommended HINTS exam and Leandro maneuver if possible. Performed Rock-Hallpike and patient had significant lateralization to the left with severe increase of symptoms. Was able to perform complete Leandro maneuver. Patient did state that after Leandro maneuver he did have resolution of dizziness but had headache and residual nausea. We will give patient antiemetic and acetaminophen and continue to monitor. Spoke with Dr. Nuno and discussed case further along with findings of hints exam and Bernardino-Hallpike. She stated low probability and suspicion of CVA and more than likely peripheral source of patient's symptoms. Recommended outpatient follow-up with physical therapy to assist with further Leandro maneuver. We will provide patient with antiemetics and meclizine. Reassessed p atient to discuss plan of care and he stated improvement of nausea but still headache. Will give ketorolac and allow patient to eat before having patient ambulate before final disposition Was able to eat and ambulated through the department and states continued improvement of symptoms. Will discharge patient with Zofran and meclizine as discussed and have patient return to the emergency department for any new or significant worsening of symptoms. After discussion of diagnosis and plan of care patient has no further needs, questions, or concerns and states clear understanding to return to the emergency department for any worsening symptoms. This documentation was generated using [employer] dictation system, please disregard any oddities of phrase or misspellings. HPI <BRANDI Brunner - Last Filed: 05/15/22 16:02> General Mode of arrival: ambulatory . Date/Time Provider Initiated Documentation: 05/15/22 10:01 . Limitations to Documentation: no limitations . Information obtained by: patient . History of Present Illness 56 year old M presents to the emergency department with the chief complaint of Dizziness, headache, described as mild, with intensity rated at 3. Quality is described as aching, and is localized to the head. Patient reports no radiation. Patient started experiencing this hour(s) (7) and it has been other (improving). No relieving factors improve symptom(s), Movement worsens symptoms . Patient notes nausea/vomiting. Patient did receive the following treatments prior to arrival, none Related Data Home Medications Medication Instructions Recorded Confirmed aspirin 81 mg tablet,delayed 81 mg PO DAILY 02/07/22 05/15/22 release atorvastatin 80 mg tablet 80 mg PO QHS #90 tabs 02/07/22 05/15/22 metoprolol succinate 50 mg 50 mg PO DAILY #30 tabs 02/07/22 05/15/22 tablet,extended release 24 hr clopidogrel 75 mg tablet 75 mg PO DAILY #90 tabs 02/16/22 05/15/22 meclizine 25 mg tablet 25 mg PO TID PRN dizziness #20 tabs 05/15/22 ondansetron 4 mg disintegrating 4 mg PO Q8H PRN #20 tabs 05/15/22 tablet Previous Rx's Medication Instructions Recorded atorvastatin 80 mg tablet 80 mg PO QHS #90 tabs 02/07/22 metoprolol succinate 50 mg 50 mg PO DAILY #30 tabs 02/07/22 tablet,extended release 24 hr clopidogrel 75 mg tablet 75 mg PO DAILY #90 tabs 02/16/22 meclizine 25 mg tablet 25 mg PO TID PRN dizziness #20 tabs 05/15/22 ondansetron 4 mg disintegrating 4 mg PO Q8H PRN #20 tabs 05/15/22 tablet Allergies Allergy/AdvReac Type Severity Reaction Status Date / Time morphine AdvReac Intermediate Agitation Unverified 05/15/22 10:05 General Stated Complaint: Dizzy/Sync KIMBERLY: 3 Review of Systems <BRANDI Brunner - Last Filed: 05/15/22 16:02> Constitutional Constitutional: Denies fatigue, Denies fever(s), Reports headache(s) and Denies weakness Eyes Eyes: Denies change in vision ENT Ears, Nose, Mouth, and Throat: Reports headache(s) and Denies neck pain Cardiovascular Cardiovascular: Denies chest pain and Denies dyspnea Respiratory Respiratory: Denies dyspnea Gastrointestinal Gastrointestinal: Denies abdominal pain, Reports nausea and Reports vomiting Musculoskeletal Musculoskeletal: Denies back pain, Denies neck pain, Denies numbness and Denies tingling Integumentary/Breasts Skin/Breast: Denies rash Neurologic Neurologic: Reports headache(s), Denies numbness, Denies tingling and Denies weakness Endocrine Endocrine: Denies fatigue Hematologic/Lymphatic Hematologic/Lymphatic: Reports easy bleeding and Reports easy bruising PFSH <BRANDI Brunner - Last Filed: 05/15/22 16:02> All Active Problems (Updated 05/15/22 @ 19:39 by Jaskaran Marroquin NP) Benign paroxysmal positional vertigo (Acute) Sleep apnea in adult (Chronic) Hyperlipemia (Chronic) S/P drug eluting coronary stent placement (Chronic 01/2022) 01/25/22 [facility]. 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 Social History Smoking/Tobacco Use Status: Former Tobacco Use tobacco type: smokeless tobacco Quit Date: 07/12/21 Pack-years: 20 Smokeless tobacco user: chewing tobacco Smoking risk assessment performed?: Yes Alcohol Intake: current Alcohol Intake frequency: holidays/special occasions only Drug use: Never Substance use type: does not use Household members: friend(s) Housing: house Number of Children: 3 number of grandchildren: 5 Education Level: college Details: finished 1 year college. current occupation: works at [employer] Do you feel safe at home: Yes Do you feel safe in your relationship?: Yes Exam <BRANDI Brunner - Last Filed: 05/15/22 16:02> Const General: cooperative, healthy appearing, comfortable and no acute distress Orientation: alert, awake and oriented x3 HENMT Head: normal to inspection, normocephalic and atraumatic Face and sinus: normal facial exam Mouth: moist mucous membranes Throat: posterior oropharynx normal Eyes General: appearance normal, both eyes and all related structures Conjunctivae: conjunctivae normal Other: Mild left to right horizontal nystagmus Neck Neck: normal visual inspection, full ROM, no meningeal signs, trachea midline, supple and nontender Resp Effort & Inspection: normal respiratory effort and able to speak in complete sentences Auscultation: clear to auscultation bilaterally Cardio Rate: regular rate Rhythm: regular rhythm GI Palpation: soft, not firm, no guarding and nontender Back/Spine/Pelvis Back: No back tenderness Skin General skin exam: no rashes or lesions noted Neuro General: patient alert, patient awake, patient oriented x3, moves all extremities and no focal motor deficits Cranial Nerves: CN's II-XI intact bilaterally Cognition: normal cognition Speech: speech normal Gait: antalgic (mild) Motor: muscle tone normal throughout, strength 5/5 throughout, no movement abnormalities noted and no fasciculations Sensory Exam: no sensory deficits noted Coordination: Does not sway with eyes open Extrem General: normal to inspection, full ROM, capillary refill normal, no pedal edema, no calf tenderness and normal gait Psych Appearance: grossly normal Mental Status: mental status grossly normal Course <BRANDI Brunner - Last Filed: 05/15/22 16:02> Vital Signs Vital signs: Vital Signs Temperature 36.5 C 05/15/22 10:01 Pulse 71 05/15/22 10:01 Respiratory Rate 18 05/15/22 10:01 Blood Pressure 165/76 H 05/15/22 10:01 Pulse Oximetry 99 05/15/22 10:01 Temperature 36.5 C 05/15/22 10:01 Temperature Source Oral 05/15/22 10:01 Pulse 71 10/04/22 10:01 Respiratory Rate 18 05/15/22 10:01 Respiratory Effort Non-Labored 05/15/22 10:06 Blood Pressure 165/76 H 05/15/22 10:01 Blood Pressure Position Sitting 05/15/22 10:01 Pulse Oximetry 99 05/15/22 10:01 Oxygen Delivery Method Room Air 05/15/22 10:01 Oxygen Flow Rate 0 05/15/22 10:01 Pain Level 8 05/15/22 10:01 Critical Care Time <BRANDI Brunner - Last Filed: 05/15/22 16:02> Critical Care Time Critical Care Time: Yes Total Critical Care Time: 45 Attestation: Upon my evaluation, this patient had a high probability of clinically significant, life-threatening deterioration due to their current medical conditions, which required my direct attention, intervention, and personal management. I have personally provided greater than 30 minutes of critical care time exclusive of the time spend on separately billable procedures. Time includes obtaining a history, examining the patient, pulse oximetry, review of laboratory data, radiology results, discussion with consultants, arranging urgent treatment with development of a management plan, evaluation of patient's response to treatment, and monitoring for potential decompensation. Interventions were performed as documented above. Sign Out <BRANDI Brunner - Last Filed: 05/15/22 16:02> Sign Out Data: Sign Out Comment: Presented with dizziness-ataxia. MRI concerning for nonhemorrhagic infarct. Consulted with Dr. Nuno who will reach out to our radiology team. Requesting a HINTS exam in the meantime. Awaiting official consultation with Dr. Nuno, reevaluation, and final disposition. Last updated by Ventura Alexandra PA at 05/15/22 16:03
[2022-05-15 11:02] LABS: Abs Immature Grans 0.04 10^3/uL (0.0-0.06); Absolute Basophil Count 0.05 10^3/uL (0.0-0.2); Absolute Eosinophil Count 0.02 10^3/uL (0.0-0.7); Absolute Lymphocyte Count 1.62 10^3/uL (1.2-3.4); Absolute Monocyte Count 0.55 10^3/uL (0.1-0.8); Absolute Neutrophil Count 7.64 10^3/uL (1.2-6.7); Basophils % 0.5; Eosinophils % 0.2; HCT 48.7 % (40.0-50.0); HGB 16.8 g/dL (13.5-17.5); Immature Grans % 0.4; Lymphocytes % 16.3; MCH 32.3 pg (27.0-33.0); MCHC 34.5 % (32.0-36.0); MCV 94 fL (80-95); MPV 9.6 fL (8.0-11.0); Monocytes % 5.5; Neutrophils % 77.1; Platelet Count 222 10^3/uL (130-400); RDW 12.6 % (11.8-14.1); RDW-SD 43.5 fL; WBC 9.92 10^3/uL (4.4-10.8)
[2022-05-15] MEDS: Ondansetron 4 MG/2 ML VIAL IVP ×2 (11:08→17:28)
[2022-05-15] MEDS: Normal Saline 1,000 ML 1000 ML IV (11:08)
[2022-05-15] MEDS: Meclizine 25 MG TAB PO (11:11)
[2022-05-15 11:15] LABS: INR 1.1 (0.9-1.1); PTT Activated 23.5 sec (21.0-27.5); Prothrombin Time 10.7 sec (9.3-11.0)
[2022-05-15 11:24] LABS: ALT 55 U/L (16-63); AST 29 U/L (15-37); Albumin 3.9 g/dL (3.4-5.0); Alkaline Phosphatase 67 U/L (46-116); BUN 12 mg/dL (7-18); Bilirubin, Total 0.6 mg/dL (0.2-1.0); Calcium 8.9 mg/dL (8.5-10.1); Chloride 106 mmol/L (98-107); Estimated GFR 88.33 (mL/min/1.73m2); Glucose 123 mg/dL (74-106); Magnesium 1.8 mg/dL (1.8-2.4); Sodium 141 mmol/L (136-145); TSH 3.37 uIU/mL (0.36-3.74); Total Protein 7.5 g/dL (6.4-8.2); Troponin I < 50 ng/L (<or=60)
--- NOTE | 2022-05-15 12:13 | DI.CT_ITS ---
Exam(s) CT HEAD WO EXAM: CT HEAD WO CLINICAL HISTORY: Dizziness, headache. TECHNIQUE: Imaging Protocol: Axial computed tomography images with coronal and sagittal reformatted images were created and reviewed COMPARISON: No exams were available for comparison FINDINGS: There are no skull fractures nor fluid in the visualized paranasal sinuses. There is no evidence of intracranial hemorrhage, mass effect, or shift of midline structures. There are no extra-axial fluid collections. The ventricles are not enlarged or shifted and there is no blo od within the ventricular system nor within the basal cisterns. IMPRESSION: No acute intracranial findings on this noninfused CT scan of the brain. Called by myself to ER provider. RADIATION DOSE DELIVERED: 848.31mGy.cm Total DLP DATA REPOSITORY: All CT scans at this facility are submitted to the National Radiology Data Registry (NRDR) Dose Index Registry (DIR) with the [employer] (ACR). RADIATION OPTIMIZATION: All CT scans at this facility use at least one of these dose optimization te chniques: automated exposure control; mA and/or kV adjustment per patient size (includes targeted exa ms where dose is matched to clinical indication); or iterative reconstruction.
[2022-05-15 12:45] LABS: Source Nasal/Nares
[2022-05-15 12:50] LABS: Bilirubin Negative (Negative); Blood Trace-lysed (Negative); Clarity Clear (Clear); Glucose Negative (Negative); Ketones Negative (Negative); Leukocyte Esterase Negative (Negative); Nitrite Negative (Negative); Specific Gravity 1.015 (1.005-1.025); pH 6.5 (5-8)
[2022-05-15 12:57] LABS: Bacteria Negative HPF (Negative); C & S Indicated? No; Casts Negative LPF (Negative); Crystals Negative HPF (Negative); Epithelial Cells Rare HPF (Negative); Mucus Negative (Negative); RBC 0-2 HPF (0-2); WBC Negative HPF (0-5)
[2022-05-15 13:28] LABS: COVID-19 PCR Negative (Negative)
[2022-05-15] MEDS: diazePAM 10 MG/2 ML SYR 5 MG IVP (13:44)
--- NOTE | 2022-05-15 15:45 | DI.MRI_ITS ---
Exam(s) MR BRAIN WO EXAM: MR BRAIN WO CLINICAL HISTORY: dizzy,ataxia TECHNIQUE: Multiplanar multisequence MRI of the brain was performed. COMPARISON: CT CT HEAD WO from 05/15/2022 FINDINGS: CEREBRAL PARENCHYMA: There is no evidence of intracranial hemorrhage, mass effect, or shift of midline structures. There are no extra-axial fluid collections. Ventricles are not enlarged or shifted. There is no significant focal signal abnormality in the cerebellar hemispheres nor within the ren, m idbrain, and thalami. However, there is a focus of signal abnormality fluid in restricted diffusion in the immediate right periventricular white matter-just above the medial right basal ganglia consistent measuring approxima tely 8 x 6 millimeters and consistent with nonhemorrhagic lacunar infarct. No other areas of restric gary diffusion in the brain. There is no significant focal signal abnormality evident on diffusion imaging to suggest acute ischem ic event. PITUITARY GLAND: No mass nor parasellar abnormality. No obvious abnormality in the cavernous sinuses. FLOW VOIDS: The expected flow void are noted. No evidence of obvious aneurysm nor obvious vascular ma lformation. PARANASAL SINUSES: The visualized paranasal sinuses appear unremarkable. No obvious finding ORBITS: No obvious findings. IMPRESSION: There is an 8 x 6 millimeter acute nonhemorrhagic lacunar infarct in the immediate right periventricu lar white matter. No other areas of infarct in the brain. Report called by myself to ER provider. DATA REPOSITORY:
[2022-05-15] MEDS: ACETAMINOPHEN 1,000 MG/100 ML BTL 400 MG IVPB (17:26)
[2022-05-15] MEDS: Ketorolac 15 MG/ML VIAL IVP (18:07)
--- NOTE | 2022-05-15 19:45 | NUR.NOTE ---
Referral faxed to [facility] Pat Corbett to f/u in one week for vertigo.Nursing Note:
[2022-05-15] MEDS: Meclizine 25 MG TAB 75 MG PO (19:46)
[2022-05-15] MEDS: Ondansetron O.D.T. 4 MG TABEF, 3 TABS/BTL PO (19:49)
== END 2022-05-15 19:44 | disposition home or self-care (01) ==
PROVIDERS: Physician Assistant; Emergency Provider Nurse Practitioner Family; PCP Family Medicine
DX: H81.10 Benign paroxysmal vertigo, unspecified ear (principal); I63.81 Other cerebral infarction due to occlusion or stenosis of small artery; I10 Essential (primary) hypertension; Z87.891 Personal history of nicotine dependence; Z20.822 Contact with and (suspected) exposure to COVID-19
CPT/HCPCS: 80053; 87635; 93005; 96361; 96374; 96375; 99291; 70450; 70551; 81003; 81015; 83735; 84443; 84484; 85025; 85610; 85730; 93010; J0131; J1885; J2405; J3360

== ENCOUNTER 2023-12-16 16:14 | Emergency (ER) | payer OTHER, SELFPAY ==
[2023-12-16 16:21] VITALS: BP 174/115; PULSE 110; RESP 18; TEMP 36.8; O2SAT 97
[2023-12-16 17:33] VITALS: BP 148/111; PULSE 87; RESP 18; TEMP 36.7; O2SAT 97
[2023-12-16 17:41] VITALS: BP 180/110
--- NOTE | 2023-12-16 17:48 | W.ED.GENAD ---
Discharge Plan Disposition Patient Disposition: Home Condition: Good Discharge Details Clinical Impression: Pain of right calf, Hypertension Primary Care Provider: Pat Corbett ED Provider: Theresa Andrade Home Meds and New Rx's Prescriptions: New chlorthalidone 25 mg tablet 12.5 mg PO DAILY 14 Days Qty: 7 0RF Continued aspirin 81 mg tablet,delayed release (DR/EC) 81 mg PO DAILY clopidogrel 75 mg tablet 75 mg PO DAILY Qty: 90 3RF atorvastatin 80 mg tablet 80 mg PO QHS Qty: 90 3RF metoprolol succinate 50 mg tablet extended release 24 hr 50 mg PO DAILY Qty: 30 8RF Discharge Instructions Additional Instructions: Please call your primary care provider's office first thing in the morning to schedule follow-up appointment. I have placed an order for you to have an outpatient ultrasound to evaluate your calf pain. Please call diagnostic imaging first thing in the morning after 7 AM to schedule an appointment at [phone]. As your blood pressure has been elevated for the last couple of visits and was very elevated today, I recommend that you start blood pressure medication. Please take the chlorthalidone as prescribed Return to emergency care if you develop new chest pain, shortness of breath, episodes of dizziness/passing out, worsening pain/redness/swelling to your calf, leg numbness/weakness, or if you are very worried and need to be rechecked again immediately Stand Alone Forms: Work Release Referrals: Pat Corbett MD [Primary Care Provider] - HPI General Date/Time Provider Initiated Documentation: 12/16/23 17:22. HPI Narrative: Jon is a 57-year-old male who presents to the emergency department today for evaluation of painful swelling to the back of his right calf. He reports that he noticed on last week (5 days ago); says it felt like a golf ball size muscle spasm that feels like stretching when he felt point and flex his foot. Couple days ago he felt it burst, says it like an orange being squished. The firm area of swelling/discomfort has not dissipated, however the pain has radiated up the thigh. He did have some ecchymosis at the back of the knee which has since resolved. He denies distal numbness/tingling. Walking is painful due to the stretching in his calf. He denies other associated symptoms such as chest pain, shortness of breath, change in bowel or bladder function. He does have a history of NSTEMI, is currently taking atorvastatin, Plavix, and metoprolol. He has not seen his doctor in the last couple of years, says that his blood pressures have been elevated recently. No recent trauma or change in activity level. Denies history of cancer or blood clots. Related Data Home Medications Medication Instructions Recorded Confirmed aspirin 81 mg tablet,delayed 81 mg PO DAILY 02/07/22 12/16/23 release atorvastatin 80 mg tablet 80 mg PO QHS #90 tabs 02/19/23 12/16/23 clopidogrel 75 mg tablet 75 mg PO DAILY #90 tabs 02/19/23 12/16/23 metoprolol succinate 50 mg 50 mg PO DAILY #30 tabs 04/29/23 12/16/23 tablet,extended release 24 hr chlorthalidone 25 mg tablet 12.5 mg (1/2 x 25 mg) PO DAILY 14 12/16/23 days #7 tabs Previous Rx's Medication Instructions Recorded atorvastatin 80 mg tablet 80 mg PO QHS #90 tabs 02/19/23 clopidogrel 75 mg tablet 75 mg PO DAILY #90 tabs 02/19/23 metoprolol succinate 50 mg 50 mg PO DAILY #30 tabs 04/29/23 tablet,extended release 24 hr chlorthalidone 25 mg tablet 12.5 mg (1/2 x 25 mg) PO DAILY 14 12/16/23 days #7 tabs Allergies Allergy/AdvReac Type Severity Reaction Status Date / Time morphine AdvReac Intermediate Agitation Unverified 12/16/23 16:28 General Stated Complaint: GenMedical KMIBERLY: 3 Review of Systems Narrative: see HPI Exam Const General: cooperative, healthy appearing, comfortable, no acute distress, well developed and well groomed Resp Effort & Inspection: normal respiratory effort and able to speak in complete sentences Neuro Gait: normal gait Motor: muscle tone normal throughout and strength 5/5 throughout Sensory Exam: no sensory deficits noted Extrem Left lower extremity: normal to inspection, full ROM, normal capillary refill and lower leg Details: tenderness (4cm x 4 cm) Location: of the posterior calf and no edema; no erythema, no crepitus, no deformity and no unusual warmth; no edema Course Vital Signs Vital signs: Vital Signs Temperature 36.8 C 12/16/23 16:21 Pulse 110 H 05/06/24 16:21 Respiratory Rate 18 12/16/23 16:21 Blood Pressure 174/115 H 12/16/23 16:21 Pulse Oximetry 97 12/16/23 16:21 Temperature 36.7 C 12/16/23 17:33 Temperature Source Skin 12/16/23 17:33 Pulse 87 12/16/23 17:33 Respiratory Rate 18 12/16/23 17:33 Blood Pressure 180/110 H 12/16/23 17:41 Blood Pressure Position Sitting 12/16/23 16:21 Pulse Oximetry 97 12/16/23 17:33 Oxygen Delivery Method Room Air 12/16/23 16:21 Oxygen Flow Rate 0 12/16/23 16:21 Pain Level 6 12/16/23 16:21 Medical Decision Making Jon is a 57-year-old male who presents to the emergency department today for evaluation of painful swelling to the back of his right calf. He reports that he noticed on last week (5 days ago); says it felt like a golf ball size muscle spasm that feels like stretching when he felt point and flex his foot. Couple days ago he felt it burst, says it like an orange being squished. The firm area of swelling/discomfort has not dissipated, however the pain has radiated up the thigh. He did have some ecchymosis at the back of the knee which has since resolved. He denies distal numbness/tingling. Walking is painful due to the stretching in his calf. He denies other associated symptoms such as chest pain, shortness of breath, change in bowel or bladder function. He does have a history of NSTEMI, is currently taking atorvastatin, Plavix, and metoprolol. He has not seen his doctor in the last couple of years, says that his blood pressures have been elevated recently. No recent trauma or change in activity level. Denies history of cancer or blood clots. Physical exam remarkable for firm area of tenderness to posterior calf, approximately 4 cm diameter. No overlying redness/warmth. Distal pulses intact. Sensation grossly intact. Faint ecchymosis noted to the lateral popliteal fossa. No tenderness or swelling to the thigh. Both calves measure 43 cm. No collateral superficial veins noted. DDx includes but is not limited to: DVT, muscle spasm, Ramos's cyst, calf muscle injury. No physical exam findings concerning for cellulitis or abscess. Wells score 1, indicating low risk for DVT I independently interpreted the following tests: CBC and CMP reassuring, only mild elevation of AST and ALT noted. D-dimer negative Blood pressure was noted to be markedly elevated today, systolic 170s to 180s with diastolic in the 110s. As patient has had elevated blood pressures at previous visits, concern for significant hypertension. Will initiate chlorthalidone for blood pressure management. Advise follow-up with PCP. Patient is agreeable with plan of care. Etiology of calf pain unclear, probable Ramos's cyst. As D-dimer was negative, etiology other than DVT most likely. Will obtain outpatient ultrasound to further evaluate and have patient follow-up with PCP. Reviewed red flags indicate need for return to emergency care. Jon is agreeable with plan of care. Quality:SDOH Health Related Social Needs: No Data to Display PFSH All Active Problems (Updated 12/16/23 @ 19:30 by Theresa Rooney) Hypertension (Chronic) Pain of right calf (Acute) Sleep apnea in adult (Chronic) Hyperlipemia (Chronic) S/P drug eluting coronary stent placement (Chronic 01/2022) 01/25/22 JO[facility] to [facility] from [facility] ER. 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 Social History Smoking/Tobacco Use Status: Former Tobacco Use tobacco type: smokeless tobacco Quit Date: 07/12/21 Pack-years: 20 Smokeless tobacco user: chewing tobacco Smoking risk assessment performed?: Yes Alcohol Intake: current Alcohol Intake frequency: holidays/special occasions only Drug use: Never Substance use type: does not use Household members: friend(s) Housing: house Number of Children: 3 number of grandchildren: 5 Education Level: college Details: finished 1 year college. current occupation: works at [employer] Do you feel safe at home: Yes Do you feel safe in your relationship?: Yes
[2023-12-16 18:20] VITALS: BP 180/110; PULSE 87; RESP 18; TEMP 36.7; O2SAT 97
[2023-12-16 18:31] LABS: HCT 52.9 % (40.0-50.0); HGB 18.1 g/dL (13.5-17.5); MCH 32.4 pg (27.0-33.0); MCHC 34.2 % (32.0-36.0); MCV 95 fL (80-95); MPV 9.9 fL (8.0-11.0); Platelet Count 235 10^3/uL (130-400); RBC 5.58 10^6/uL (4.36-5.78); RDW 12.4 % (11.8-14.1); RDW-SD 43.9 fL
[2023-12-16 18:46] LABS: ALT 85 U/L (16-63); AST 54 U/L (15-37); Alkaline Phosphatase 66 U/L (46-116); Anion Gap 10.9 mmol/L (3-11); BUN 13 mg/dL (7-18); Bilirubin, Total 0.7 mg/dL (0.2-1.0); CO2 23.1 mmol/L (21.0-32.0); CREATININE 1.1 mg/dL (0.70-1.30); Calcium 8.8 mg/dL (8.5-10.1); Chloride 107 mmol/L (98-107); Glucose 91 mg/dL (74-106); Potassium 4.3 mmol/L (3.5-5.1); Sodium 141 mmol/L (136-145); Total Protein 7.6 g/dL (6.4-8.2)
[2023-12-16 19:07] LABS: D-Dimer 163 ng/mlFEU (<500)
[2023-12-16 19:54] VITALS: BP 180/110; PULSE 87; RESP 15; RESP 18; TEMP 36.7; O2SAT 97
--- NOTE | 2023-12-16 23:55 | NUR.NOTE ---
Pt placed on care management referral list to be seen by PCP for Diabetes management to be seen within 1 week
--- NOTE | 2023-12-16 23:57 | NUR.NOTE ---
Pt placed on care management referral list to be seen by PCP for new BP meds and elevated blood pressure to be seen within 1-2 weeks
--- NOTE | 2023-12-17 12:35 | NUR.NOTE ---
Request for out patient US right extremity for calf pain and swelling to be done REYNA, follow up in the ED, faxed to DI. Nursing Note:
== END 2023-12-16 19:55 | disposition home or self-care (01) ==
PROVIDERS: Emergency Provider Nurse Practitioner Family; PCP Family Medicine
DX: M79.661 Pain in right lower leg (principal); M79.651 Pain in right thigh; I10 Essential (primary) hypertension; I25.119 Atherosclerotic heart disease of native coronary artery with unspecified angina pectoris; I25.2 Old myocardial infarction; Z79.82 Long term (current) use of aspirin; Z79.02 Long term (current) use of antithrombotics/antiplatelets; Z95.5 Presence of coronary angioplasty implant and graft; Z87.891 Personal history of nicotine dependence
CPT/HCPCS: 80053; 85027; 99283; 85379

== ENCOUNTER 2023-12-17 16:20 | Emergency (ER) | payer OTHER, SELFPAY ==
[2023-12-17 16:23] VITALS: BP 165/102; PULSE 117; RESP 20; TEMP 36; O2SAT 96
--- NOTE | 2023-12-17 16:52 | ED.GENADUL_ITS ---
Discharge Plan Disposition Patient Disposition: Home Condition: Stable Discharge Details Clinical Impression: Pain in right leg Primary Care Provider: Pat Corbett ED Provider: Willie Goff Home Meds and New Rx's Prescriptions: No Action aspirin 81 mg tablet,delayed release (DR/EC) 81 mg PO DAILY clopidogrel 75 mg tablet 75 mg PO DAILY Qty: 90 3RF atorvastatin 80 mg tablet 80 mg PO QHS Qty: 90 3RF metoprolol succinate 50 mg tablet extended release 24 hr 50 mg PO DAILY Qty: 30 8RF chlorthalidone 25 mg tablet 12.5 mg PO DAILY 14 Days Qty: 7 0RF Discharge Instructions Instructions: Leg Pain (ED) Additional Instructions: you may benefit from ALYSSA testing or an MRI of the leg to further evaluate causes of your pain and tingling. please call your PCP to schedule these tests HPI General Date/Time Provider Initiated Documentation: 12/17/23 16:23 . Limitations to Documentation: no limitations . Information obtained by: patient . HPI Narrative: 57-year-old gentleman with past medical history of CAD, status post stent, hypertension, sleep apnea presents for evaluation of right lower extremity pain. Patient was evaluated in the emergency department last night for this pain. At that time he reported that 5 days ago he felt a muscle spasm in the back of his leg. He states that after walking, he then felt it burst to like an orange. He states that he has pain radiating up into his thigh. Denies any swelling. He states that walking is painful. He was evaluated for a DVT with an ultrasound outpatient today and returns to the emergency department for ultrasound results. He reports that his symptoms or not significantly better, he still has pain in the back of his leg. Denies any numbness or weakness. Denies any bowel or bladder changes. Pain is constant, but worse with walking Related Data Home Medications Medication Instructions Recorded Confirmed aspirin 81 mg tablet,delayed 81 mg PO DAILY 02/07/22 12/17/23 release atorvastatin 80 mg tablet 80 mg PO QHS #90 tabs 02/19/23 12/17/23 clopidogrel 75 mg tablet 75 mg PO DAILY #90 tabs 02/19/23 12/17/23 metoprolol succinate 50 mg 50 mg PO DAILY #30 tabs 04/29/23 12/17/23 tablet,extended release 24 hr chlorthalidone 25 mg tablet 12.5 mg (1/2 x 25 mg) PO DAILY 14 12/16/23 12/17/23 days #7 tabs Previous Rx's Medication Instructions Recorded atorvastatin 80 mg tablet 80 mg PO QHS #90 tabs 02/19/23 clopidogrel 75 mg tablet 75 mg PO DAILY #90 tabs 02/19/23 metoprolol succinate 50 mg 50 mg PO DAILY #30 tabs 04/29/23 tablet,extended release 24 hr chlorthalidone 25 mg tablet 12.5 mg (1/2 x 25 mg) PO DAILY 14 12/16/23 days #7 tabs Allergies Allergy/AdvReac Type Severity Reaction Status Date / Time morphine AdvReac Intermediate Agitation Unverified 12/17/23 16:25 General Stated Complaint: Recheck KIMBERLY: 3 Exam Narrative Exam Narrative: Review of Systems: All systems reviewed & are unremarkable except as noted in HPI and below Well-developed, no acute distress NCAT PERRL, normal conjunctiva RRR Unlabored respiratory effort Nondistended abdomen right lower extremity without swelling, deformity, no appreciable Ramos's cyst, lower extremity is warm and well-perfused, neurovascularly intact gait observed to be normal No rashes or lesions. no focal neurologic deficits Appropriate mood and affect Course Vital Signs Vital signs: Vital Signs Temperature 36 C L 12/17/23 16:23 Pulse 117 H 12/17/23 16:23 Respiratory Rate 20 12/17/23 16:23 Blood Pressure 165/102 H 12/17/23 16:23 Pulse Oximetry 96 12/17/23 16:23 Temperature 36 C L 12/17/23 16:23 Temperature Source Skin 12/17/23 16:23 Pulse 117 H 12/17/23 16:23 Respiratory Rate 20 12/17/23 16:23 Blood Pressure 165/102 H 12/17/23 16:23 Blood Pressure Position Sitting 12/17/23 16:23 Pulse Oximetry 96 12/17/23 16:23 Oxygen Delivery Method Room Air 12/17/23 16:23 Oxygen Flow Rate 0 12/17/23 16:23 Pain Level 7 12/17/23 16:23 Medical Decision Making Evaluation of ultrasound report. Patient got outpatient ultrasound ordered to evaluate for DVT secondary to leg pain. The ultrasound is negative for DVT, hematoma or Ramos's cyst. I reviewed the ultrasound report reexamined the patient. At this time there is no concerning features on the patient's physical exam. The patient describes an orange bursting type sensation, this could be a partial tear of his gastroc though does seem to be intact, Achilles tendon is intact there is no bruising or any real appreciable swelling so this does seem unlikely. I have advised though that his symptoms do not get better, he should get an outpatient MRI. He also is high risk for vascular disease given his his tory of coronary artery disease and I have recommended that he also get outpatient ABIs if the symptoms or not improving. Both of these things can be accomplished through his PCP. Advised him to follow-up closely with their office. Quality:SDOH Health Related Social Needs: No Data to Display PFSH All Active Problems Pain in right leg (Acute) Hypertension (Chronic) Pain of right calf (Acute) Sleep apnea in adult (Chronic) Hyperlipemia (Chronic) S/P drug eluting coronary stent placement (Chronic 01/2022) 01/25/22 JOE[facility] to [facility] from [facility] ER. 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 Social History Smoking/Tobacco Use Status: Former Tobacco Use tobacco type: smokeless tobacco Quit Date: 07/12/21 Pack-years: 20 Smokeless tobacco user: chewing tobacco Smoking risk assessment performed?: Yes Alcohol Intake: current Alcohol Intake frequency: holidays/special occasions only Drug use: Never Substance use type: does not use Household members: friend(s) Housing: house Number of Children: 3 number of grandchildren: 5 Education Level: college Details: finished 1 year college. current occupation: works at [employer] Do you feel safe at home: Yes Do you feel safe in your relationship?: Yes
--- NOTE | 2023-12-23 13:20 | NUR.NOTE ---
Nursing Note: Pt called asking for an extension of his work note. One was provided to him to get him out of work for last week. He stated that he is still unable to ambulate and would like another note to get an extra week out of work. He was instructed that he needs to see his PCP to get another work note, that we are unable to provide that (per our doctor on the floor). Pt was understanding and appropriate.
== END 2023-12-17 17:04 | disposition home or self-care (01) ==
PROVIDERS: Emergency Provider Emergency Medicine; PCP Family Medicine
DX: M79.604 Pain in right leg (principal); I10 Essential (primary) hypertension; Z86.79 Personal history of other diseases of the circulatory system
CPT/HCPCS: 99281; 99282

== ENCOUNTER → 2024-01-01 09:32 | Outpatient (CLI) | payer OTHER, SELFPAY ==
--- NOTE | 2024-01-01 14:20 | DI.MRI_ITS ---
Exam(s) MR LOWER EXTREMITY RT WO EXAM: MR LOWER EXTREMITY RT WO CLINICAL HISTORY: right calf pain, question if ruptured muscle, M79.661 TECHNIQUE: Multiplanar multisequence MRI was performed. COMPARISON: No exams were available for comparison FINDINGS: MARROW:There is no evidence of fracture, bone contusion, nor avascular necrosis. There are no signif icant osseous lesions. MUSCLES: There is abnormal feather like high signal evident in the posterior calf musculature in the upper medialregion, specifically within the medial aspect of the soleus muscle. This signal abnormal ity involves the upper half of this muscle. It does not extend caudally to the actual Achilles tendo n. The overlying medial gastrocnemius muscle does not exhibit abnormal signal. There is no intermus cular collection at this level. EXTRAMUSCULAR SOFT TISSUES: There is no evidence of Ramos cyst in the popliteal fossa. The above described edema involves the area through which run the peroneal nerve, artery, and vein. IMPRESSION: 1. There is feathery signal abnormality in the soleus musculature subjacent to the medial gastrocnemi us, consistent with intrasubstance tearing of this muscle. There is also some edema signal in the re gion of the adjacent neurovascular structures as described above DATA REPOSITORY:
== END ==
PROVIDERS: PCP Family Medicine; Visit Provider Family Medicine
DX: S86.111A Strain of other muscle(s) and tendon(s) of posterior muscle group at lower leg level, right leg, initial encounter (principal); X58.XXXA Exposure to other specified factors, initial encounter
CPT/HCPCS: 73718